=== PATIENT | female | born 1990 | race Caucasian/White ===

== ENCOUNTER 2017-05-27 03:05 | Emergency (ER) | payer OTHER ==
[2017-05-27] MEDS ORDERED: Acetaminophen/HYDROcodone 325-5 MG Tab PO SCH (03:45)
--- NOTE | 2017-05-29 13:37 | ER ---
DATE SEEN: 05/27/2017 TIME SEEN: The patient was seen at 0330 hours. HISTORY OF PRESENT ILLNESS: Yajaira is a 26-year-old who lives with the family. Her mother and brother have severe bruxism, and she has the same. She apparently clamps down the right jaw, upper and lower, and this resulted in severe pain of teeth 2, 3, 4, 5, and teeth 31, 30, and 29. She has moderate jaw pain. No history of fever. She has a wire brace that stabilizes intercuspid teeth of mandible. Otherwise, the patient denies fever, chills, sore throat. She has marked discomfort in the mandible and the maxilla, teeth 2, 3, 4, 5, 29, 31, 30. PHYSICAL EXAMINATION: Percussion of 29, 30, and 31 and also 2, 3, 4 teeth results in marked pain. The crowns of the teeth are not fractured. The lower molars have several silver fillings. Generally, the teeth are in very good repair and well attended to, and in good alignment. Simple closure of the occlusal surfaces causes pain in both upper and lower molars on the right side. [id number] discomfort inferior to the right mandible, submandibular area is noted. There is suggestion of slight fullness of right submandibular soft tissue but lymph nodes are not discretely palpable. No anterior cervical adenopathy. No compromised circulation. Oropharyngeal swallowing is appropriate and no compromise of the posterior pharynx. No palatal or gingival tenderness/erythema or swelling. Dental hygiene is good. No fractures of the teeth. ASSESSMENT: 1. History of bruxism. 2. Family history of bruxism, brother and mother, both have mouth guards. 3. Marked tenderness 2, 3, 4 and 31, 30, and 29 teeth-molars secondary to bruxism. Two tablets of Vicodin given to the patient, one for now and she can take another as needed tomorrow. Plans are for either fabricate a dental mold for herself from [employer] or have a dentist do the same so she can diminish the frequent bruxism induced pain and pressure of her teeth to avoid fracturing the crowns. No medicine given to the patient other than those 2 tablets of hydrocodone. /[id number] LS/MODL
== END 2017-05-27 04:00 | disposition home or self-care (01) ==
LOC: FB.ED 03:05
DX: F43.9 Reaction to severe stress, unspecified (principal); F45.8 Other somatoform disorders
CPT/HCPCS: 99282; A9270

== ENCOUNTER 2020-02-25 03:36 | Emergency (ER) | payer OTHER ==
[2020-02-25] MEDS ORDERED: Sulfamethoxazole/Trimethoprim 800-160 MG Tab PO ONE (03:37)
[2020-02-25] MEDS ORDERED: Phenazopyridine 95 MG Tab PO STA (04:19)
--- NOTE | 2020-02-25 04:19 | EDM.PDOC ---
ED HPI GENERAL MEDICAL PROBLEM - General Chief Complaint: Genitourinary Problem Stated Complaint: BLADDER INFECTION Time Seen by Provider: 02/25/20 04:00 Source of Information: Reports: Patient History Limitations: Reports: No Limitations - History of Present Illness INITIAL COMMENTS - FREE TEXT/NARRATIVE: Patient presented to the ED because of dysuria, urgency, and frequency for 2 days. There is no fever or chills. No N/V or flank pain. - Related Data Allergies Allergy/AdvReac Type Severity Reaction Status Date / Time No Known Allergies Allergy Verified 04/15/18 17:54 Home Meds: Home Meds NK [No Known Home Meds] 05/27/17 [History] Past Medical History - Past Health History Medical/Surgical History: Denies Medical/Surgical History Endocrine/Metabolic History: Reports: Hyperthyroidism - Infectious Disease History Infectious Disease History: Reports: Chicken Pox - Past Surgical History GI Surgical History: Reports: Appendectomy Social & Family History - Family History Family Medical History: Noncontributory - Tobacco Use Tobacco Use Status *Q: Unknown Ever Used Tobacco - Caffeine Use Caffeine Use: Reports: Coffee - Recreational Drug Use Recreational Drug Use: No ED ROS GENERAL - Review of Systems Review Of Systems: See Below Constitutional: Reports: No Symptoms HEENT: Reports: No Symptoms Respiratory: Reports: No Symptoms Cardiovascular: Reports: No Symptoms Endocrine: Reports: No Symptoms GI/Abdominal: Reports: No Symptoms : Reports: Dysuria, Frequency, Urgency. Denies: Flank Pain Musculoskeletal: Reports: No Symptoms Skin: Reports: No Symptoms ED EXAM, RENAL/ - Physical Exam Exam: See Below Exam Limited By: No Limitations General Appearance: Alert, No Apparent Distress Ears: Normal External Exam, Normal Canal Nose: Normal Inspection, Normal Mucosa Throat/Mouth: Normal Inspection, Normal Lips, Normal Teeth Head: Atraumatic, Normocephalic Neck: Normal Inspection, Supple, Non-Tender, Full Range of Motion Respiratory/Chest: No Respiratory Distress, Lungs Clear, Normal Breath Sounds Cardiovascular: Normal Peripheral Pulses, Regular Rate, Rhythm GI/Abdominal: Normal Bowel Sounds, Soft, Other (suprapubic tenderness) Extremities: Normal Inspection, Normal Range of Motion, Non-Tender Neurological: Alert, Oriented, CN II-XII Intact, Normal Cognition Psychiatric: Normal Affect, Normal Mood Skin Exam: Warm, Intact, Normal Color Course - Vital Signs Text/Narrative:: UC-pending Pyridium 200 mg po x1 Start on Bactrim DS twice daily Last Recorded V/S: Last Vital Signs Temp 36.4 C 02/25/20 03:56 Pulse 81 02/25/20 03:56 Resp 16 02/25/20 03:56 BP 149/94 H 02/25/20 04:10 Pulse Ox 100 02/25/20 03:56 - Orders/Labs/Meds Orders: Active Orders 24 hr Category Date Time Status CULTURE URINE [RM] Stat Lab 02/25/20 04:15 Ordered Labs: Laboratory Tests 02/25/20 Range/Units 03:48 Urine Color Yellow (YELLOW) Urine Appearance Cloudy (CLEAR) Urine pH 5.0 (5.0-6.5) Ur Specific Seney 1.025 (1.010-1.025) Urine Protein 30 H (NEGATIVE) mg/dL Urine Glucose (UA) Normal (NORMAL) mg/dL Urine Ketones Negative (NEGATIVE) mg/dL Urine Occult Blood Large H (NEGATIVE) Urine Nitrite Negative (NEGATIVE) Urine Bilirubin Negative (NEGATIVE) Urine Urobilinogen Normal (NEGATIVE) mg/dL Ur Leukocyte Esterase Large H (NEGATIVE) Meds: Medications Discontinued Medications Generic Name Dose Route Start Last Admin Trade Name Freq PRN Reason Stop Dose Admin Phenazopyridine HCl 190 mg 02/25/20 04:19 Urinary Pain Relief PO 02/25/20 04:20 NOW STA Departure - Departure Time of Disposition: 04:30 Disposition: Home, Self-Care 01 Condition: Good Clinical Impression: UTI (urinary tract infection) - Discharge Information Instructions: Urinary Tract Infection, Adult, [id number] Referrals: Felicita Comer NP [Primary Care Provider] - Forms: ED Department Discharge Additional Instructions: Please read discharge instructions on ITI Increase oral fluids Take Bactrim DS twice daily for 5 days Follow up as needed Sepsis Event Note (ED) - Evaluation Sepsis Screening Result: No Definite Risk - Focused Exam Vital Signs: Vital Signs Temp Pulse Resp BP Pulse Ox 02/25/20 04:10 149/94 H 02/25/20 03:56 36.4 C 81 16 162/102 H 100 - My Orders Last 24 Hours: My Active Orders 02/25/20 04:15 CULTURE URINE [RM] Stat - Assessment/Plan Last 24 Hours: My Active Orders 02/25/20 04:15 CULTURE URINE [RM] Stat
== END 2020-02-25 04:36 | disposition home or self-care (01) ==
LOC: FB.ED 03:36
DX: N39.0 Urinary tract infection, site not specified (principal)
CPT/HCPCS: 81003; 87086; 87088; 87186; 99283; A9270